=== PATIENT | male | born 1950 | race Caucasian/White ===

== ENCOUNTER 2020-06-04 11:49 | Outpatient (NON) | payer MEDICARE, SELFPAY ==
[2020-06-05 21:18] LABS: SARS-CoV-2 RNA PCR Negative
== END 2020-06-04 11:50 ==
PROVIDERS: PCP Family Medicine; Visit Provider Family Medicine
DX: Z20.828 Contact with and (suspected) exposure to other viral communicable diseases (principal); J02.9 Acute pharyngitis, unspecified; R05 Cough; R52 Pain, unspecified
CPT/HCPCS: 87635; C9803; U0003

== ENCOUNTER 2020-07-11 12:19 | Outpatient (NON) | payer MEDICARE, SELFPAY ==
[2020-07-11 23:00] LABS: SARS-CoV-2 RNA PCR Negative
== END 2020-07-11 12:20 ==
LOC: ANHCOVIDDT 12:21
PROVIDERS: PCP Family Medicine; Visit Provider Family Medicine
DX: Z20.828 Contact with and (suspected) exposure to other viral communicable diseases (principal); R05 Cough
CPT/HCPCS: 87635; C9803; U0003

== ENCOUNTER 2020-10-24 08:19 | Outpatient (CLI) | payer MEDICARE, SELFPAY ==
--- NOTE | 2020-10-24 09:02 | EST_ITS ---
Patient Info Name: Zoran Villanueva Age: 70 years : 1950 Gender: Male Ht: 67 in Wt: 185 lbs BSA: 2.01 m2 Exam Date: 10/24/2020 9:07 AM Exam Location: [facility] Stress Patient Status: Outpatient Admit Date: 10/24/2020 Staff Ordering Physician: Shanell Ferrara PA-C Attending Provider: Shanell Ferrara PA-C Exercise Technologist: Elysia Farr RDCS Exercise Physician: Johnny Vigil DO Exam Type: CA stress test treadmill Study Info Indications R06.00 - Dyspnea, unspecified A treadmill exercise stress test was performed. Summary 1. 1. Negative Singh exercise stress test for ischemic ST changes by ECG criteria. 2. 2. Good functional capacity, achieving 10 METs of workload. 3. 3. Very minimal chronotropic incompetence with maximal HR at 127 bpm. 4. 4. Appropriate HR recovery at 1 minute post exercise. 5. 5. No imaging with stress testing. 6. 6. Patient informed of the above results. Protocol: Singh Stress ECG Details Stage: REST Duration (min): 10 min : 1 sec Speed (mph): 0.0 Grade (%): 0 HR (bpm): 70 SBP (mmHg): 131 DBP (mmHg): 81 METS: --- Stage: REST Duration (min): 10 min : 28 sec Speed (mph): 0.0 Grade (%): 0 HR (bpm): 71 SBP (mmHg): 131 DBP (mmHg): 81 METS: --- Stage: STAGE 1 Duration (min): 1 min : 0 sec Speed (mph): 1.7 Grade (%): 10 HR (bpm): 92 SBP (mmHg): 131 DBP (mmHg): 81 METS: --- Stage: STAGE 1 Duration (min): 2 min : 0 sec Speed (mph): 1.7 Grade (%): 10 HR (bpm): 102 SBP (mmHg): 131 DBP (mmHg): 81 METS: --- Stage: STAGE 1 Duration (min): 3 min : 0 sec Speed (mph): 1.7 Grade (%): 10 HR (bpm): 109 SBP (mmHg): 158 DBP (mmHg): 66 METS: --- Stage: STAGE 2 Duration (min): 1 min : 0 sec Speed (mph): 2.5 Grade (%): 12 HR (bpm): 110 SBP (mmHg): 158 DBP (mmHg): 66 METS: --- Stage: STAGE 2 Duration (min): 2 min : 0 sec Speed (mph): 2.5 Grade (%): 12 HR (bpm): 116 SBP (mmHg): 200 DBP (mmHg): 73 METS: --- Stage: STAGE 2 Duration (min): 3 min : 0 sec Speed (mph): 2.5 Grade (%): 12 HR (bpm): 118 SBP (mmHg): 200 DBP (mmHg): 73 METS: --- Stage: STAGE 3 Duration (min): 1 min : 0 sec Speed (mph): 3.4 Grade (%): 14 HR (bpm): 119 SBP (mmHg): 169 DBP (mmHg): 73 METS: --- Stage: STAGE 3 Duration (min): 2 min : 0 sec Speed (mph): 3.4 Grade (%): 14 HR (bpm): 123 SBP (mmHg): 169 DBP (mmHg): 73 METS: --- Stage: STAGE 3 Duration (min): 3 min : 0 sec Speed (mph): 3.4 Grade (%): 14 HR (bpm): 127 SBP (mmHg): 183 DBP (mmHg): 72 METS: --- Stage: RECOVERY Duration (min): 0 min : 59 sec Speed (mph): 0.0 Grade (%): 0 HR (bpm): --- SBP (mmHg): 183 DBP (mmHg): 72 METS: --- Stage: RECOVERY Durati
== END 2020-10-24 08:20 | disposition home or self-care (01) ==
PROVIDERS: PCP Family Medicine; Visit Provider Physician Assistant
DX: R06.00 Dyspnea, unspecified (principal); R07.89 Other chest pain
CPT/HCPCS: 93017

== ENCOUNTER 2021-09-21 09:33 | Emergency (ER) | payer MEDICARE, SELFPAY ==
--- NOTE | ~2021-09-21 | CT_ITS ---
EXAMINATION: CT abdomen pelvis w con DATE: 09/21/2021 11:41 INDICATION: Generalized abdominal pain. Upper respiratory infection. TECHNIQUE: Computed tomography (CT) of the abdomen and pelvis was performed with 100 cc Omnipaque 350 intravenous contrast. The dose-length product was 705.76 mGy-cm. Automated exposure control and iter ative reconstruction technique were employed. COMPARISON: None. FINDINGS: Heart size normal. No significant pleural or pericardial effusion. Fatty infiltration of th e liver. The spleen, pancreas, adrenal glands are unremarkable. There are nonobstructing bilateral ne phrolithiasis. No hydronephrosis. No ureteral stones identified. There are right renal cysts. There i s mild thickening of the distal esophagus which may represent underdistention or esophagitis. Gallbladder is present. Nonobstructive bowel gas pattern. No abnormal pelvic masses or fluid collecti ons. Mild-moderate no free air or free fluid. No significant vascular abnormality. No lymphadenopathy . Thoracic spondylosis. IMPRESSION: 1. No acute abdominal abnormality. 2: Nonobstructing bilateral nephrolithiasis. 3: Hepatic steatosis. 4: Mild thickening of the distal esophagus which may be due to underdistention or esophagitis. Reviewed, dictated and finalized at location B. TIER
--- NOTE | ~2021-09-21 | XR_ITS ---
EXAMINATION: XR chest 1V portable 09/21/2021 10:07 INDICATION: Worsening cough PROCEDURE: AP portable chest COMPARISON: 09/19/2015 FINDINGS: The lungs are clear. The cardiomediastinal silhouette is within normal limits. There are no pleural effusions. There is no pneumothorax suspected. IMPRESSION: 1: NO ACUTE CARDIOPULMONARY DISEASE. Reviewed, dictated and finalized at location B. [employer]
[2021-09-21 09:42] VITALS: BP 165/86; PULSE 71; RESP 18; TEMP 36.3; O2SAT 97
[2021-09-21 09:43] VITALS: PULSE 71; RESP 8; TEMP 36.3; O2SAT 97
--- NOTE | 2021-09-21 10:13 | ECG_ITS ---
Measurements Intervals [place] Rate: 65 P: 68 ND: 219 QRS: 23 QRSD: 87 T: 29 QT: 376 QTc: 393 Interpretive Statements SINUS RHYTHM WITH FIRST DEGREE AV BLOCK CONSIDER INFERIOR INFARCT, AGE INDETERMINATE ABNORMAL ECG Electronically Signed On 09-21-2021 12:07:53 [employer] by Johnny Vigil D.O.
[2021-09-21 10:27] LABS: Basophils Percent Auto 0.2 % (0.2-1.2); Eosinophils Absolute Auto 0.2 K/mm3 (0-0.3); Eosinophils Percent Auto 1.7 % (0-4.4); Hemoglobin 17.8 g/dL (14.0-18.0); Immature Granulocyte Absolute 0.03 K/mm3 (0.00-0.031); Immature Granulocyte Percent A 0.3 % (0-0.5); Lymphocytes Absolute Auto 1.77 K/mm3 (0.9-3.2); Lymphocytes Percent Auto 19.2 % (18.3-44.2); Mean Corpuscular HGB Conc 34.9 g/dl (32-36); Mean Corpuscular Hemoglobin 32.6 pg (26-34); Mean Corpuscular Volume 93.4 fl (80-100); Mean Platelet Volume 9.3 fl (7.4-10.4); Monocytes Absolute Auto 0.9 K/mm3 (0.1-0.6); Monocytes Percent Auto 10.1 % (2.6-8.5); Neutrophils Absolute Auto 6.3 K/mm3 (1.3-6.7); Neutrophils Percent Auto 68.5 % (45.5-73.1); Platelet Count Result 198 k/mm3 (150-375); Red Blood Count 5.46 M/mm3 (4.6-6.20); White Blood Count 9.2 K/mm3 (4.5-10.0)
--- NOTE | 2021-09-21 10:32 | ED.GENADULT ---
HPI - General Adult General Chief complaint: Upper Respiratory Infection Stated complaint: cold symptoms Time Seen by Provider: 09/21/21 09:36 Source: RN notes reviewed History of Present Illness HPI narrative: Patient presents emergency department from home for upper respiratory infection. Patient states she has been having a cough this been productive of yellow sputum for the past 1 week states is associated with rhinorrhea and a mild sore throat states that over the past 2 days he has developed pain in his lower bilateral back as well as an intermittent pain that starts in his right jaw and goes down into his right cheek and the right side of his neck states that this pain is intermittent and will last several minutes and then resolve he denies any fevers or chills, ear pain, chest pain shortness of breath abdominal pain nausea vomiting or any other symptoms Related Data Home Medications Medication Instructions Recorded Confirmed multivitamin 1 tablet PO DAILY 12/09/19 06/08/21 omega-3 fatty acids 500 mg capsule 500 mg PO DAILY 12/09/19 06/08/21 fluticasone propionate 50 1 spray NASAL DAILY 01/11/20 06/08/21 mcg/actuation nasal spray,suspension ascorbic acid (vitamin C) 1,000 mg 1 g PO DAILY 10/07/20 06/08/21 tablet Allergies Allergy/AdvReac Type Severity Reaction Status Date / Time Cat Dander Allergy Unknown unknown Uncoded 06/08/21 09:38 Review of Systems Review of Systems: Gen.: Denies fevers or chills ENT: Reports congestion Respiratory: D see HPI CV: Denies chest pain or palpitations GI: Denies abdominal pain nausea, emesis or diarrhea denies burning, urgency, frequency or hematuria Musculoskeletal: Reports lower back pain Neuro: Denies numbness, tingling, weakness or focal weakness Skin: Denies rash Except as documented, all other systems reviewed and negative [facility] Past Medical History Medical History Arthritis Asthma H/O ulcer disease Hepatitis C antibody test negative High cholesterol History of high blood pressure Surgical History Surgical History History of removal of cyst Family History Family History Father Family history of Parkinson's disease Family history of Alzheimer's disease Mother Hypertension Sibling Cancer Other Alzheimer disease Cataracts, both eyes Family history of malignant neoplasm Lymphoma Social History Social History Alcohol intake: current Substance use: never 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 Gender identity (if verbalized by the patient): Male Exam Narrative: APPEARANCE: No acute distress, nontoxic, resting in bed EYES: EOMI HEENT: Normocephalic, atraumatic, TMs clear bilaterally the bilateral turbinates are boggy oromucosa moist erythema exudate posterior pharynx no tenderness to palpation of her right upper or lower molars the right overlying cheek has no tenderness palpation there is mild tenderness over the right maxillary sinus and at the right TMJ Neck: Supple no midline tenderness palpation no cervical lymphadenopathy palpated RESPIRATORY: No respiratory distress Clear to auscultation bilaterally with no rhonchi wheezing or rales. CARDIOVASCULAR: Regular rate and rhythm without murmurs rubs or gallops. ABDOMINAL: Soft, n nondistended, tender palpation left lower quadrant left upper quadrant no tenderness right lower quadrant right upper quadrant no rebound or guarding MUSCULOSKELETAl: Moves all extremities. No clubbing, cyanosis or edema. NEURO: Awake and alert. Following commands, speech normal, no focal deficits SKIN:: Warm, dry. No rashes lesions or abrasions PSYCHIATRIC: Normal affect/mood, Course Course Emergency Course: Patient states pain is
[2021-09-21 10:37] LABS: Prothrombin Time 12.8 Seconds (11.1-14.7)
[2021-09-21 10:38] LABS: Partial Thromboplastin Time 26.8 SECONDS (22.3-36.8)
[2021-09-21 10:45] LABS: Add Urine Microscopic? NO; Appearance Urine Clear (Clear); Bilirubin Urine Negative (Negative); Blood Urine Negative (Negative); Color Urine Yellow (Yellow); Glucose Urine UA Negative (Negative); Ketones Urine Negative (Negative); Leukocyte Esterase Ur Negative LEU/UL (Negative); Nitrate Urine Negative (Negative); Protein Urine Negative (Negative); Specific Grav Ur 1.012 (1.001-1.035); Urobilinogen Urine Negative mg/dL (<2.0)
[2021-09-21 11:00] LABS: Troponin I < 0.012 ng/mL (0.000-0.034)
[2021-09-21 11:04] LABS: Alanine Aminotransferase 56 U/L (4-50); Albumin Level 4.6 g/dL (3.5-5.1); Alkaline Phosphatase 62 U/L (38-126); Anion Gap 8 mmol/L (8-16); Aspartate Amino Transferase 40 U/L (17-59); Blood Urea Nitrogen 22 mg/dL (9-20); Calcium 9.4 mg/dL (8.4-10.2); Carbon Dioxide 27 mmol/L (22-30); Chloride 102 mmol/L (98-107); Estimated CRCL calculation 56 ml/min; Estimated Glomerular Filt Rate > 60; Glucose 108 mg/dL (65-110); Lipase 185 U/L (23-300); Potassium 4.6 mmol/L (3.4-5.0); Sodium 137 mmol/L (137-145)
[2021-09-21] MEDS: KETOROLAC 15 MG/ML VIAL (*BKC) IV PUSH (11:21)
[2021-09-21 11:58] VITALS: BP 156/79; PULSE 65; RESP 18; TEMP 36.4; O2SAT 100
[2021-09-21 13:28] VITALS: BP 139/86; PULSE 73; RESP 18; O2SAT 99
[2021-09-21 13:40] LABS: Troponin I < 0.012 ng/mL (0.000-0.034)
[2021-09-21 14:59] LABS: SARS-CoV-2 RNA PCR Negative
== END 2021-09-21 14:10 | disposition home or self-care (01) ==
PROVIDERS: Emergency Provider Emergency Medicine; PCP Family Medicine
DX: J06.9 Acute upper respiratory infection, unspecified (principal); Z20.822 Contact with and (suspected) exposure to COVID-19; J45.909 Unspecified asthma, uncomplicated; E78.00 Pure hypercholesterolemia, unspecified; I10 Essential (primary) hypertension; M19.90 Unspecified osteoarthritis, unspecified site; R93.3 Abnormal findings on diagnostic imaging of other parts of digestive tract; N20.0 Calculus of kidney; K76.0 Fatty (change of) liver, not elsewhere classified; I44.0 Atrioventricular block, first degree; R94.31 Abnormal electrocardiogram [ECG] [EKG]
CPT/HCPCS: 36415; 71045; 74177; 80053; 81003; 83690; 84484; 85025; 85610; 85730; 87804; 93005; 96374; 99284; C9803; J1885; Q9967; U0003; U0005

== ENCOUNTER 2022-04-04 12:47 | Emergency (ER) | payer MEDICARE, SELFPAY ==
--- NOTE | ~2022-04-04 | CT_ITS ---
EXAMINATION: CT abdomen pelvis wo con DATE: 04/04/2022 14:33 INDICATION: Left flank pain. TECHNIQUE: Computed tomography (CT) of the abdomen and pelvis was performed without intravenous contr ast. Automated exposure control and iterative reconstruction technique were employed. The dose-length product was 607.66 mGy-cm. COMPARISON: CT abdomen and pelvis 09/21/2021 FINDINGS: The visualized portions of the lung bases demonstrate mild atelectasis. No pleural effusion . The heart size is normal. There are coronary artery calcifications. No pericardial effusion. There is diffuse hepatic steatosis. The gallbladder, spleen, pancreas, adrenal glands, and left kidney are normal. There is a 2.8 cm cyst in right kidney. There is a 3 mm stone in right kidney. There are no d ilated loops of bowel. The appendix is normal. There are no pathologically enlarged lymph nodes. Ther e is no free intraperitoneal fluid. There is severe lower lumbar spondylosis. IMPRESSION: 1. Diffuse hepatic steatosis. 2. Small nonobstructing right kidney stone. Reviewed, dictated and finalized at location A.
[2022-04-04 13:07] VITALS: BP 148/83; PULSE 69; RESP 14; TEMP 36.8; O2SAT 97
--- NOTE | 2022-04-04 13:20 | PC.NURSE ---
Patient states he has been having back pain for a few weeks and has been seeing the chiropractor. patient states he was playing golf today and when he went to swing his club, he began having muscle spasms that brought him to his knees. patient complains of left sided back pain worsening with movement.
--- NOTE | 2022-04-04 13:57 | ED.GENADULT ---
HPI - General Adult General Chief complaint: Back Pain/Injury Stated complaint: back spasms Time Seen by Provider: 04/04/22 13:40 History of Present Illness HPI narrative: 71-year-old male presenting the emergency department for evaluation of left flank and left lower back pain that started when he was golfing. Patient states for the last few days he has had intermittent lower back pain. Patient describes pain in his left lower back that is worsened with movement. Patient denies any radiation of the pain down either leg. Patient denies any associated numbness or weakness. Patient did take Tylenol for pain control prior to golfing. Patient states while he was on the 10th of all he had onset of left flank and left back pain. Patient had concerned that this may be his kidney. Patient denies any hematuria. Patient denies any blood in his urine. Patient denies any prior history of kidney stone. Patient has been having intermittent lower back pain over the last few weeks that is exacerbated by golfing. Related Data Home Medications Medication Instructions Recorded Confirmed multivitamin 1 tablet PO DAILY 12/09/19 02/15/22 omega-3 fatty acids 500 mg capsule 500 mg PO DAILY 12/09/19 02/15/22 ascorbic acid (vitamin C) 1,000 mg 1 g PO DAILY 10/07/20 02/15/22 tablet albuterol sulfate 90 mcg/actuation 2 inh inhalation Q4H PRN shortness 10/09/21 02/15/22 aerosol inhaler of breath or wheezing Allergies Allergy/AdvReac Type Severity Reaction Status Date / Time Cat Dander Allergy Unknown unknown Uncoded 04/04/22 14:02 Review of Systems Review of Systems: CONSTITUTIONAL: Denies fever, chills, or sweats. EYES: Denies visual changes, redness, or discharge. ENT: Denies rhinorrhea, congestion, sore throat, or otalgia. CARDIOVASCULAR: Denies chest pain, palpitations, or edema. RESPIRATORY: Denies cough or dyspnea. GASTROINTESTINAL: Denies abdominal pain, nausea, vomiting, or diarrhea. GENITOURINARY: Denies dysuria or hematuria. SKIN: Denies rash or itching. MUSCULOSKELETAL: See HPI NEUROLOGIC: Denies headache, numbness, or weakness. [facility] Past Medical History Medical History Arthritis Asthma H/O ulcer disease Hepatitis C antibody test negative High cholesterol History of high blood pressure Surgical History Surgical History History of removal of cyst Family History Family History Father Family history of Parkinson's disease Family history of Alzheimer's disease Mother Hypertension Sibling Cancer Other Alzheimer disease Cataracts, both eyes Family history of malignant neoplasm Lymphoma Social History Social History Smoking status: Never smoker Second hand tobacco smoke exposure: No Alcohol intake: current Substance use: never 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 HEAD: normocephalic, atraumatic. EYES: PERRLA/EOMI, conjunctivae clear. NECK: Supple. No adenopathy, no masses. RESPIRATORY: Airway patent, respirations nonlabored. Clear to auscultation bilaterally, no rales, rhonchi, wheezing. CARDIOVASCULAR: Regular rate and rhythm without murmurs rubs or gallops. ABDOMINAL: Soft, nontender, nondistended, normal bowel sounds MUSCULOSKELETAL: Moves all extremities. No reproducible tenderness to palpation. No midline tenderness deformities or step-offs. NEURO: Alert. Cranial nerves II through XII intact. Grossly intact SKIN: Warm, dry. Normal Color Course Course Emergency Course: Patient's urine showed no evidence of urinary tract infection. CT showed no evidence of obstructing uri
[2022-04-04] MEDS: CYCLOBENZAPRINE HCL 10 MG TABLET PO (14:01)
[2022-04-04 14:30] LABS: Add Urine Microscopic? NO; Appearance Urine Clear (Clear); Bilirubin Urine Negative (Negative); Blood Urine Negative (Negative); Color Urine Yellow (Yellow); Glucose Urine UA Negative (Negative); Ketones Urine Negative (Negative); Leukocyte Esterase Ur Negative LEU/UL (Negative); Nitrate Urine Negative (Negative); Protein Urine Negative (Negative); Specific Grav Ur 1.025 (1.001-1.035); Urobilinogen Urine 0.2 mg/dL (<2.0)
--- NOTE | 2022-04-04 15:21 | PC.NURSE ---
Patient states his back pain has gotten better. patient is able to move with less discomfort.
[2022-04-04 15:33] VITALS: BP 134/84; PULSE 60; RESP 18; O2SAT 99
== END 2022-04-04 15:34 | disposition home or self-care (01) ==
PROVIDERS: Emergency Provider Emergency Medicine; PCP Family Medicine
DX: M54.50 Low back pain, unspecified (principal); J45.909 Unspecified asthma, uncomplicated; E78.00 Pure hypercholesterolemia, unspecified; I10 Essential (primary) hypertension; M19.90 Unspecified osteoarthritis, unspecified site; K76.0 Fatty (change of) liver, not elsewhere classified; N20.0 Calculus of kidney
CPT/HCPCS: 74176; 81003; 99284; A9270

== ENCOUNTER 2023-04-08 09:23 | Outpatient (CLI) | payer MEDICARE, SELFPAY ==
[2023-04-08 19:47] LABS: Thyroid Stimulating Hormone 0.452 uIU/mL (0.465-4.680)
[2023-04-08 20:34] LABS: Hematocrit 44.6 % (42.0-52.0); Hemoglobin 15.5 g/dL (14.0-18.0); Mean Corpuscular HGB Conc 34.8 g/dl (32-36); Mean Corpuscular Hemoglobin 32.8 pg (26-34); Mean Corpuscular Volume 94.5 fl (80-100); Mean Platelet Volume 9.8 fl (7.4-10.4); Platelet Count Result 185 k/mm3 (150-375); Red Blood Count 4.72 M/mm3 (4.6-6.20); Red Cell Distribution Width 11.5 % (11.5-14.5); White Blood Count 5.3 K/mm3 (4.5-10.0)
[2023-04-11 14:18] LABS: Vitamin D 1,25 (OH)2 Total 44 pg/mL (18-72); Vitamin D2 1,25 (OH)2 <8 pg/mL; Vitamin D3 1,25 (OH)2 44 pg/mL
== END 2023-04-08 09:24 | disposition home or self-care (01) ==
PROVIDERS: PCP Family Medicine; Visit Provider Family Medicine
DX: E55.9 Vitamin D deficiency, unspecified (principal); E78.5 Hyperlipidemia, unspecified; I10 Essential (primary) hypertension; R53.83 Other fatigue
CPT/HCPCS: 36415; 82652; 84443; 85027

== ENCOUNTER 2024-02-24 08:37 | Outpatient (CLI) | payer MEDICARE, SELFPAY ==
--- NOTE | ~2024-02-24 | US_ITS ---
Limited left upper quadrant ULTRASOUND Ordering provider: Pia Pickard QUILL FIXER-C History: . R10.12 - Left upper quadrant pain . Comparison: None. FINDINGS: SPLEEN: Normal size, echotexture and contour and measures 12.6 cm in length. KIDNEYS: the left 12.1x 5.6x 5.6 cm in length. There is no evidence for hydronephrosis, solid renal m ass, renal calculi or perinephric fluid collections. No renal cysts. UPPER ABDOMINAL AORTA: Normal in caliber distally and measures 2.1 cm. IMPRESSION: 1. Unremarkable left upper quadrant ultrasound of the abdomen. Reviewed, dictated and finalized at location A.
== END 2024-02-24 08:38 ==
LOC: GOSHIMG 08:38
PROVIDERS: PCP Family Medicine; Visit Provider Nurse Practitioner
DX: R10.12 Left upper quadrant pain (principal)
CPT/HCPCS: 76705

== ENCOUNTER 2024-04-10 13:35 | Outpatient (CLI) | payer MEDICARE, SELFPAY ==
--- NOTE | ~2024-04-10 | CT_ITS ---
EXAMINATION: CTA brain DATE: 04/10/2024 14:11 INDICATION: Pulsatile tinnitus. Imbalance. TECHNIQUE: Computed tomographic angiography (CTA) of the head was performed without and with 100 mL O mnipaque-350 intravenous contrast. Automated exposure control and iterative reconstruction technique were employed. The dose-length product was 1270.78 mGy-cm. Maximum intensity projection 3D reconstru ctions were created. Volume-rendered 3D reconstructions of the intracranial arteries were created by the technologist on a separate workstation. COMPARISON: None. FINDINGS: There is no intracranial hemorrhage, acute infarction, or abnormal intracranial mass lesion . The ventricles are normal in size. There is mild mucosal thickening in the paranasal sinuses. The o rbits are normal. The mastoid air cells are normal. The vertebral arteries are codominant. There is n o significant stenosis of basilar artery or the posterior cerebral arteries. There is no significant stenosis of the intracranial internal carotid arteries or anterior or middle cerebral arteries. Anter ior communicating artery is normal. The posterior communicating arteries are normal. There is no aneu rysm. IMPRESSION: 1. Normal brain. No aneurysm or significant intracranial arterial stenosis. Reviewed, dictated and finalized at location A.
[2024-04-10 13:52] LABS: Estimated Glomerular Filt Rate 54
== END 2024-04-10 13:36 | disposition home or self-care (01) ==
PROVIDERS: PCP Family Medicine; Visit Provider Otolaryngology
DX: R26.89 Other abnormalities of gait and mobility (principal); H90.6 Mixed conductive and sensorineural hearing loss, bilateral; H93.A2 Pulsatile tinnitus, left ear
CPT/HCPCS: 70496; Q9967

== ENCOUNTER 2024-04-16 09:43 | Outpatient (CLI) | payer MEDICARE, SELFPAY | END 2024-04-16 09:44 | disposition home or self-care (01) | LOC: ANHAUDIO 09:44 | PROVIDERS: PCP Family Medicine; Visit Provider Otolaryngology | DX: H93.12 Tinnitus, left ear (principal); Q17.3 Other misshapen ear; H69.90 Unspecified Eustachian tube disorder, unspecified ear; H90.6 Mixed conductive and sensorineural hearing loss, bilateral; R26.89 Other abnormalities of gait and mobility; H93.A2 Pulsatile tinnitus, left ear | CPT/HCPCS: 92557; 92567 ==